=== PATIENT | male | born 2005 | race Caucasian/White ===

== ENCOUNTER 2024-09-21 15:57 | Emergency (ER) | payer BC, SELFPAY ==
[2024-09-21 15:59] VITALS: BP 140/84; PULSE 87; RESP 15; TEMP 36.4; O2SAT 100
--- NOTE | 2024-09-21 22:12 | ED_ITS ---
HPI - Extremity Injury (Lower) General Chief Complaint: Extremity Injury, Lower Stated Complaint: R thigh pain Time Seen by Provider: 09/21/24 16:29 History of Present Illness HPI Narrative: 19-year-old otherwise healthy male presents to the emergency department for evaluation of right thigh ?indentation ?he states that he has had some occasional right thigh pain when he woke up this morning and noticed that there was an incident where his major muscle groups near the quadriceps are in his right lower extremity and thigh. Denies any injury, no trauma or injuries. No strenuous activity such as lifting weights, lifting or any trauma. Denies any strenuous activity such as running or marathon. No recent infectious symptoms, was otherwise in his normal state of health. Ambulates unassisted without any ataxic or antalgic gait. Related Data Allergies Allergy/AdvReac Type Severity Reaction Status Date / Time No Known Allergies Allergy Unverified 07/15/13 08:37 Review of Systems Review of Systems: As reviewed above in HPI Exam Narrative: GENERAL: [Well-appearing, well-nourished, and in no acute distress.] HEAD: [Normocephalic, atraumatic.] EYES: [PERRLA and EOMI.] ENT: Nares clear, no rhinorrhea or epistaxis. Mucous membranes moist. NECK: Supple. CHEST: [Clear to auscultation. No respiratory distress.] HEART: [Regular rate and rhythm]. No murmur heard. [Normal peripheral pulses.] ABDOMEN: [Soft, nondistended], [nontender], [No rigidity or guarding] EXTREMITIES: Some asymmetry to the proximal thigh muscle groups of compared bilaterally. The right-sided does have a small indentation near the vastus medialis compared to the left lower extremity. No overlying skin changes or deformity, no tenderness with palpation, full range of motion of both arms and legs, ambulating without assistance, no ataxia antalgic gait. Able to flex and extend at the hip and flex extend at the knee without difficulty. Able to extend the hip and flex the quadriceps muscles equally bilaterally. SKIN: Warm, dry, no rash. NEURO: [No focal deficits]. Alert and oriented [x3.] PSYCH: [Normal mood and affect.] Course Vital Signs Vital signs: Vital Signs Temperature 36.4 C 09/21/24 15:59 Pulse Rate 87 09/21/24 15:59 Respiratory Rate 15 09/21/24 15:59 Blood Pressure 140/84 09/21/24 15:59 Pulse Oximetry 100 09/21/24 15:59 Oxygen Delivery Room Air 09/21/24 15:59 Temperature 36.4 C 09/21/24 15:59 Pulse Rate 87 09/21/24 15:59 Respiratory Rate 15 09/21/24 15:59 Blood Pressure 140/84 09/21/24 15:59 Pulse Oximetry 100 09/21/24 15:59 Oxygen Delivery Room Air 09/21/24 15:59 MDM - Extremity Injury (Lower) MDM Narrative Medical decision making narrative: 19-year-old otherwise healthy male presents for evaluation of a ?indentation ?in his right thigh, near his vastus medialis was right lower extremity quadriceps he does have a small divot but no overlying skin changes or tenderness with palpation. Normal gait, normal strength and sensation throughout both legs, full range of motion of the extremities including hip and knee extension flexion, plantar and dorsiflexion. No recent injuries or trauma, no direct overlying skin changes or other concerns. Could be a muscle strain verses a intramuscular hematoma versus less likely quadriceps tear given the lack of inciting event or trauma. Bedside ultrasound was used to investigate the muscle fibers and assess for any inflammatory changes. No identifiable tear or large hematoma/abscess formation, there does seem to be some potential inflammation or contusion in his quadriceps region there although very nonspecific and not too dissimilar from his left- sided quadriceps. Overall very benign-appearing ultrasound per my interpretation. Given that he is not having any pain or symptoms right now I believe he can safely discharged and follow up with his regular doctor for referrals to potential Sports Medicine or Orthopedics but will trial NSAID t herapy and have him return with any new or worsening concerns. Medical Records Attestation: I reviewed the patient's medical records. Discharge Plan Discharge Clinical Impression: Thigh pain, Thigh contusion Patient Disposition: Home, Self-Care Condition: Stable Instructions: Antibiotic Form Additional Instructions: We did ultrasound your leg today and there appears to be a small area of contusion and some inflammation there which could be a sign of an injury or trauma. We will send you home with some medications for anti-inflammatory measures and have a follow-up with regular doctor on outpatient basis. Return with any new or worsening concerns such as inability to tolerate weight-bearing or any difficulties with ambulation or movement. Patient Language: Hungarian Prescriptions: New naproxen 500 mg tablet 500 mg PO BID PRN (Reason: pain) Qty: 20 0RF Follow-up/Referrals: PHYSICIAN,MANAGER COUNTRY [Primary Care Provider] - Time of Disposition: 17:47
== END 2024-09-21 17:51 | disposition home or self-care (01) ==
PROVIDERS: Emergency Provider Student in an Organized Health Care Education/Training Program
DX: S70.11XA Contusion of right thigh, initial encounter (principal); X58.XXXA Exposure to other specified factors, initial encounter
CPT/HCPCS: 99282

== ENCOUNTER 2024-11-07 21:06 | Emergency (ER) | payer BC, SELFPAY ==
--- NOTE | ~2024-11-07 | XR_ITS ---
EXAMINATION: XR femur RT min 2V DATE: 11/08/2024 01:46 INDICATION: Lump in anterior right thigh. TECHNIQUE: 2 views of right femur on 4 radiographs were obtained. COMPARISON: None. FINDINGS: Alignment is normal. No fracture. Joint spaces are normal. IMPRESSION: 1. No fracture. Reviewed, dictated and finalized at location A. MOTIVE FUEL SYSTEMS CONVERTER IMPRESSION: 1. No fracture.
--- OUTSIDE RECORDS SUMMARY | 2024-11-07 21:09 | XMS_ITS | Referral Summary ---
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 SOLUTION ARCHITECT Gender Identity Not on file Sexual Orientation Not on file Last Filed Vital Signs Vital Sign Reading Time Taken Comments Blood Pressure 110/72 11/17/2023 7:37 PM INTEGRATION SOLUTION ARCHITECT Pulse 95 11/17/2023 7:37 PM INTEGRATION SOLUTION ARCHITECT Temperature 37.1 C (98.7 F) 11/17/2023 7:37 PM INTEGRATION SOLUTION ARCHITECT Respiratory Rate 20 11/17/2023 7:37 PM INTEGRATION SOLUTION ARCHITECT Oxygen Saturation 99% 11/17/2023 7:37 PM INTEGRATION SOLUTION ARCHITECT Inhaled Oxygen Concentration - - Weight 65.3 kg (144 lb) 11/17/2023 7:37 PM INTEGRATION SOLUTION ARCHITECT Height 182.9 cm (6') 05/08/2023 6:25 PM CDT Body Mass Index 19.53 05/08/2023 6:25 PM CDT Plan of Treatment Not on file Insurance [place] [employer] [place] Care Teams Field Pipelines Supervisor Relationship Specialty Start Date End Date Crystal Cardozo NP [address] [place], [place] [id number] PCP - General Pediatric Emergency Medicine 11/17/23
--- OUTSIDE RECORDS SUMMARY | 2024-11-07 21:09 | XMS_ITS | Clinical Summary ---
Author Organization [facility] Address [address] [place] [address] Care Team Providers Care Geospatial Specialist Name Role Phone Crystal Cardozo NP Primary Care Provider [phone] Allergies No known active allergies Medications No known medications Social History Tobacco Use Types Packs/Day Years Used Date Smoking Tobacco: Never Assessed Sex and Gender Information Value Date Recorded Sex Assigned at Not on file Legal Sex Male 9:51 PM CDT Gender Identity Not on file Sexual Orientation Not on file Last Filed Vital Signs Vital Sign Reading Time Taken Comments Blood Pressure 150/77 08/02/2023 9:58 PM CDT Pulse 75 08/02/2023 9:58 PM CDT Temperature 36.7 C (98.1 F) 08/02/2023 9:58 PM CDT Respiratory Rate 16 08/02/2023 9:58 PM CDT Oxygen Saturation 99% 08/02/2023 9:58 PM CDT Inhaled Oxygen Concentration - - Weight 74.8 kg (165 lb) 08/02/2023 9:58 PM CDT Height 182.9 cm (6') 08/02/2023 9:58 PM CDT Body Mass Index 22.38 08/02/2023 9:58 PM CDT Plan of Treatment Health Maintenance Due Date Last Done Comments Annual Physical 2007 HPV Vaccines (1 - Male 3-dose series) 2019 Meningococcal B Vaccine (1 of 2 - Standard) 2020 Hepatitis C 2022 COVID-19 Vaccine ( season) 2024 Influenza Adult (#1) 2024 DTaP, Tdap and Td Vaccines (7 - Td or Tdap) 04/13/2025 04/13/2015, 03/16/2009, 10/21/2005, Additional history exists Hepatitis B Vaccines Completed 05/04/2005, 2004, 2004 Pneumococcal Vaccine: Pediatrics (0 to 5 Years) and At-Risk Patients (6 to 64 Years) Completed 05/04/2005, 2004, 2004, Additional history exists Meningococcal Vaccine Aged Out 04/23/2015 No ruben ca eligible based on patient's age to complete this topic RSV Immunizations Under 20 Months Aged Out No longer eligible based on patient's age to complete this topic Insurance [facility] Care Teams Geospatial Specialist Relationship Specialty Start Date End Date Crystal Cardozo NP [address] [place] [address] PCP - General NURSE PRACTITIONER PEDIATRICS 08/02/23
--- OUTSIDE RECORDS SUMMARY | 2024-11-07 21:09 | XMS_ITS | Clinical Summary ---
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 Gender Identity Not on file Sexual Orientation Not on file Obstetrics History Last Filed Vital Signs Vital Sign Reading Time Taken Comments Blood Pressure 110/72 11/17/2023 7:37 PM PELLET MACHINE OPERATOR Pulse 95 11/17/2023 7:37 PM PELLET MACHINE OPERATOR Temperature 37.1 C (98.7 F) 11/17/2023 7:37 PM PELLET MACHINE OPERATOR Respiratory Rate 20 11/17/2023 7:37 PM PELLET MACHINE OPERATOR Oxygen Saturation 99% 11/17/2023 7:37 PM PELLET MACHINE OPERATOR Inhaled Oxygen Concentration - - Weight 65.3 kg (144 lb) 11/17/2023 7:37 PM PELLET MACHINE OPERATOR Height 182.9 cm (6') 05/08/2023 6:25 PM CDT Body Mass Index 19.53 05/08/2023 6:25 PM CDT Plan of Treatment Health Maintenance Due Date Last Done Comments Depression Screening 2004 Hepatitis C Screening 2004 HPV Vaccines (1 - Male 3-dose series) 2019 Meningococcal B Vaccine (1 of 2 - Patient Seeks Protection) 2020 Regular Well Visit/Exam 18-64 2022 Influenza Vaccine (#1) 2024 DTaP/Tdap/Td Vaccine (7 - Td or Tdap) 04/13/2025 04/13/2015, 03/16/2009, 10/21/2005, Additional history exists Pneumococcal vaccine <65 Completed 005, 2004, 2004, Additional history exists Varicella Vaccines Completed 03/16/2009, 10/21/2005 Meningococcal Vaccine Aged Out 04/23/2015 No ruben ca eligible based on patient's age to complete this topic Insurance [employer] [place] [place] Care Teams Processing Archivist Relationship Specialty Start Date End Date Crystal Cardozo NP [address] [place] [address] PCP - General Pediatric Emergency Medicine 11/17/23
[2024-11-07 21:16] VITALS: BP 127/78; PULSE 69; RESP 18; TEMP 36.3; O2SAT 100
--- OUTSIDE RECORDS SUMMARY | 2024-11-08 00:09 | XMS_ITS | Clinical Summary ---
Author Organization [facility] [address] Address [address] [place] [id number] Care Team Providers Care Core Rescuer Name Role Phone Crystal Cardozo NAIL STICKER Primary Care Provider [phone] Allergies No known active allergies Medications No known medications Active Problems No known active problems Social History Tobacco Use Types Packs/Day Years Used Date Smoking Tobacco: Never Assessed Sex and Gender Information Value Date Recorded Sex Assigned at Not on file Legal Sex Male 2:03 AM JERSEY KNITTER Gender Identity Not on file Sexual Orientation Not on file Obstetrics History Last Filed Vital Signs Vital Sign Reading Time Taken Comments Blood Pressure 110/72 11/17/2023 7:37 PM JERSEY KNITTER Pulse 95 11/17/2023 7:37 PM JERSEY KNITTER Temperature 37.1 C (98.7 F) 11/17/2023 7:37 PM JERSEY KNITTER Respiratory Rate 20 11/17/2023 7:37 PM JERSEY KNITTER Oxygen Saturation 99% 11/17/2023 7:37 PM JERSEY KNITTER Inhaled Oxygen Concentration - - Weight 65.3 kg (144 lb) 11/17/2023 7:37 PM JERSEY KNITTER Height 182.9 cm (6') 05/08/2023 6:25 PM [...] patient's age to complete this topic Insurance [employer] [place] [employer] [place] Care Teams Core Rescuer Relationship Specialty Start Date End Date Crystal Cardozo NP [address] [place] [address] PCP - General Pediatric Emergency Medicine 11/17/23
--- OUTSIDE RECORDS SUMMARY | 2024-11-08 00:09 | XMS_ITS | Referral Summary ---
Author Organization [facility] [address] Address [address] [place] [address] Care Team Providers Care Engine Emission Technician Name Role Phone Crystal Cardozo MONITORING SPECIALIST Primary Care Provider [phone] Allergies No known active allergies Medications No known medications Active Problems No known active problems Social History Tobacco Use Types Packs/Day Years Used Date Smoking Tobacco: Never Assessed Sex and Gender Information Value Date Recorded Sex Assigned at Not on file Legal Sex Male 2:03 AM FLIGHT HOSTESS Gender Identity Not on file Sexual Orientation Not on file Last Filed Vital Signs Vital Sign Reading Time Taken Comments Blood Pressure 110/72 11/17/2023 7:37 PM FLIGHT HOSTESS Pulse 95 11/17/2023 7:37 PM FLIGHT HOSTESS Temperature 37.1 C (98.7 F) 11/17/2023 7:37 PM FLIGHT HOSTESS Respiratory Rate 20 11/17/2023 7:37 PM FLIGHT HOSTESS Oxygen Saturation 99% 11/17/2023 7:37 PM FLIGHT HOSTESS Inhaled Oxygen Concentration - - Weight 65.3 kg (144 lb) 11/17/2023 7:37 PM FLIGHT HOSTESS Height 182.9 cm (6') 05/08/2023 6:25 PM CDT Body Mass Index 19.53 05/08/2023 6:25 PM CDT Plan of Treatment Not on file Insurance [employer] [place] Care Teams Engine Emission Technician Relationship Specialty Start Date End Date Crystal Cardozo NP [address] [place], [place] [id number] PCP - General Pediatric Emergency Medicine 11/17/23
--- OUTSIDE RECORDS SUMMARY | 2024-11-08 00:09 | XMS_ITS | Clinical Summary ---
Author Organization [facility] Address [address] [place] [id number] Care Team Providers Care Blue Line Trimmer Name Role Phone Crystal Cardozo NP Primary Care Provider [phone] Allergies No known active allergies Medications No [...] patient's age to complete this topic Insurance [facility] Care Teams Blue Line Trimmer Relationship Specialty Start Date End Date Crystal Cardozo NP [address] [place] [address] PCP - General NURSE PRACTITIONER PEDIATRICS 08/02/23
[2024-11-08 00:58] VITALS: BP 126/78; PULSE 66; RESP 17; O2SAT 99
--- NOTE | 2024-11-08 01:05 | ED.GENADULT ---
HPI - General Adult General Chief complaint: Extremity Injury, Lower Stated complaint: fluid in muscle of leg Time Seen by Provider: 11/08/24 00:02 History of Present Illness HPI narrative: This is a 19-year-old male presenting ED with a lump in his thigh. Patient plays basketball multiple times per week. He noticed after he plays he has pain in his right thigh. He does not know any initial injury. When he flexes his thigh it does not look the same as the other side. He was seen for in our ED for this 3 months ago but never followed up with his primary care physician. Patient denies any other symptoms such as fevers chills nausea vomiting diarrhea. No overlying skin changes. Related Data Allergies Allergy/AdvReac Type Severity Reaction Status Date / Time No Known Allergies Allergy Unverified 07/15/13 08:37 Exam Narrative: APPEARANCE: No apparent distress. Head: atraumatic. EYES: EOMI, NOSE: Atraumatic NECK: Trachea midline RESPIRATORY: No increased rate of breathing CARDIOVASCULAR: RRR, ABDOMINAL: Non-distended MUSCULOSKELETAl: Exam of the right thigh shows 2 separate muscle masses when he flexes the right quad. No overlying skin changes. No fluctuant masses. Leg is neurovascularly intact. NEURO: Alert. Moving 4/4 extremities SKIN:: Warm, dry. Normal color PSYCHIATRIC: Normal affect Course Vital Signs Vital signs: Vital Signs Temperature 97.4 F L 11/07/24 21:16 Pulse Rate 69 11/07/24 21:16 Respiratory Rate 18 11/07/24 21:16 Blood Pressure 127/78 11/07/24 21:16 Pulse Oximetry 100 11/07/24 21:16 Oxygen Delivery Room Air 11/07/24 21:16 Temperature 97.4 F L 11/07/24 21:16 Pulse Rate 66 11/08/24 00:58 Respiratory Rate 17 11/08/24 00:58 Blood Pressure 126/78 11/08/24 00:58 Pulse Oximetry 99 11/08/24 00:58 Oxygen Delivery Room Air 11/07/24 21:16 Medical Decision Making [facility] Narrative Medical decision making narrative: -Course: 19-year-old male presenting with thigh pain after playing sports. X-ray of the thigh is negative. Discussed importance of following up with a primary care physician and a sports medicine physician. Discussed resting his thigh as sports appear to be exacerbating his injury. Patient will be discharged Vital Signs Vital Signs: Vital Signs Temperature 97.4 F L 11/07/24 21:16 Pulse Rate 69 11/07/24 21:16 Respiratory Rate 18 11/07/24 21:16 Blood Pressure 127/78 11/07/24 21:16 Pulse Oximetry 100 11/07/24 21:16 Oxygen Delivery Room Air 11/07/24 21:16 Temperature 97.4 F L 11/07/24 21:16 Pulse Rate 66 11/08/24 00:58 Respiratory Rate 17 11/08/24 00:58 Blood Pressure 126/78 11/08/24 00:58 Pulse Oximetry 99 11/08/24 00:58 Oxygen Delivery Room Air 11/07/24 21:16 Discharge Plan Discharge Clinical Impression: Muscle strain of right thigh Patient Disposition: Home, Self-Care Condition: Stable Instructions: Antibiotic Form, Muscle Strain (ED) Additional Instructions: Please use [id number] Motrin/Tylenol as needed for pain. Please rest your thigh as sports appear to be worsening or injury. Please follow-up with your primary care physician and they can refer you to a sports medicine doctor return if you develop severe pain or weakness your leg. Patient Language: Saudi Arabian Prescriptions: No Action naproxen 500 mg tablet 500 mg PO BID PRN (Reason: pain) Qty: 20 0RF Follow-up/Referrals: PHYSICIAN,INTERN ARCHITECT [Primary Care Provider] -
[2024-11-08 01:32] VITALS: BP 126/78; PULSE 66; RESP 17; O2SAT 99
== END 2024-11-08 01:34 | disposition home or self-care (01) ==
PROVIDERS: Emergency Provider Emergency Medicine
DX: S76.911A Strain of unspecified muscles, fascia and tendons at thigh level, right thigh, initial encounter (principal); X58.XXXA Exposure to other specified factors, initial encounter; Y93.67 Activity, basketball
CPT/HCPCS: 73552; 99283

== ENCOUNTER 2025-04-15 23:44 | Emergency (ER) | payer BC, SELFPAY ==
--- OUTSIDE RECORDS SUMMARY | 2025-04-15 23:46 | XMS_ITS | Clinical Summary ---
Author Organization [facility] Address [facility] [place] [address] Care Team Providers Care Wholesale Representative Name Role Phone Crystal Cardozo NP Primary Care Provider [phone] Allergies No known active allergies Medications No [...] C 2022 COVID-19 Vaccine ( season) 2024 DTaP, Tdap and Td Vaccines (7 - Td or Tdap) 04/13/2025 04/13/2015, 03/16/2009, 10/21/2005, Additional history exists Hepatitis B Vaccines Completed 05/04/2005, 2004, 2004 Pneumococcal Vaccine: Pediatrics (0 to 5 Years) and At-Risk Patients (6 to 49 Years) Completed 05/04/2005, 2004, 2004, Additional history exists Meningococcal Vaccine Aged Out 04/23/2015 No ruben ca eligible based on patient's age to complete this topic RSV Immunizations Under 20 Months Aged Out No longer eligible based on patient's age to complete this topic Insurance [facility] Care Teams Wholesale Representative Relationship Specialty Start Date End Date Crystal Cardozo NP [address] [place] [address] PCP - General NURSE PRACTITIONER PEDIATRICS 08/02/23
--- OUTSIDE RECORDS SUMMARY | 2025-04-15 23:46 | XMS_ITS | Referral Summary ---
Author Organization [address] [address] Care Team Providers Care Manager Relationship Name Role Phone Crystal Cardozo CONTINUITY TESTER Primary Care Provider [phone] Encounters Date Type Department Care Team Description 04/15/2025 3:45 PM CDT Office Visit [facility] at [address] [address] Natalie Thorpe NP Bilateral impacted cerumen (Primary Dx) from Last 3 Months Allergies No known active allergies Medications clobetasoL (TEMOVATE) 0.05 % gel Apply 0.05 Applications topically 2 (two) times a day 5 Active clindamycin-dena zoyl peroxide (BENZACLIN) gel APPLY EXTERNALLY TO ACNE PRONE AREAS ONCE DAILY EVERY MORNING. ALLOW TO DRY FULLY. CAN BLEACH CLOTHING 5 Active tretinoin (RETIN-A) 0.025 % cream APPLY TOPICALLY TO ACNE PRONE AREAS EVERY NIGHT 5 Active Active Problems No known active problems Social History Tobacco Use Types Packs/Day Years Used Date Smoking Tobacco: Never Smokeless Tobacco: Never Tobacco Cessation:Counseling Given: Not Answered AUDIT-C Answer Date Recorded Q1: How often do you have a drink containing alcohol? Never 12/16/2024 Q2: How many drinks containi ng alcohol do you have on a typical day when you are drinking? Patient does not drink Q3: How often do you have si x or more drinks on one occasion? 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 Gender Identity Not on file Sexual Orientation Not on file Last Filed Vital Signs Vital Sign Reading Time Taken Comments Blood Pressure 100/60 04/15/2025 3:39 PM CDT Pulse 77 04/15/2025 3:39 PM CDT Temperature 37 C (98.6 F) 04/15/2025 3:39 PM CDT Respiratory Rate 18 04/15/2025 3:39 PM CDT Oxygen Saturation 97% 04/15/2025 3:39 PM CDT Inhaled Oxygen Concentration - - Weight 77.1 kg (170 lb) 04/15/2025 3:39 PM CDT Height 182.9 cm (6') 04/15/2025 3:39 PM CDT Body Mass Index 23.06 04/15/2025 3:39 PM CDT Plan of Treatment Not on file Procedures Procedure Name Priority Date/Time Associated Diagnosis Comments OR REMOVAL IMPACTED CERUMEN INSTRUMENTATION UNILAT Routine 04/15/2025 3:45 PM CDT Bilateral impacted cerumen from Last 3 Months Results * OR REMOVAL IMPACTED CERUMEN INSTRUMENTATION UNILAT (04/15/2025 3:45 PM CDT) Narrative Natalie Thorpe NP - 04/15/2025 3:45 PM CDT Natalie Thorpe NP 04/15/2025 4:03 PM Ear Cerumen Removal Performed by: Natalie Thorpe NP Authorized by: Natalie Thorpe NP Consent Given by: Patient Verbal consent obtained: Yes Location: Bilateral L ear cerumen impacted?: Yes L ear method of removal: Instrumentation L ear instrumentation: Curette L ear magnification: Otoscope R ear cerumen impacted?: Yes R ear method of removal: Instrumentation and irrigation R ear instrumentation: Curette R ear magnification: Otoscope Inspection: TM intact Hearing quality: Improved Patient tolerance: Patient tolerated the procedure well with no immediate complications Bilateral ear canals and Tms normal after cerumen removal us Natalie Thorpe NP IN CLINIC/BEDSIDE ORDERABLES F inal Result from Last 3 Months Insurance [place] [employer] [place] Care Teams Manager Relationship Relationship Specialty Start Date End Date Crystal Cardozo NP [address] [place] [address] PCP - General Pediatric Emergency Medicine 11/17/23
--- OUTSIDE RECORDS SUMMARY | 2025-04-15 23:46 | XMS_ITS | Clinical Summary ---
Author Organization [facility] [place] [address] Address [address] [place] [id number] Care Team Providers Care Epic Trainer Name Role Phone Crystal Cardozo COMMISSIONED FIRE OFFICER Primary Care Provider [phone] [phone] Allergies No known active allergies Medications clobetasoL [...] Active Active Problems No known active problems Encounters Date Type Department Care Team Description 04/15/2025 3:45 PM CDT Office Visit [facility] Medical Group [facility] Care at [address] [address] Natalie Thorpe NP Bilateral impacted cerumen (Primary Dx) from Last 3 Months Family History Medical History Relation Name Comments No Known Problems Brother 1 No Known Problems Brother 2 No Known Problems Brother 3 No Known Problems Father No Known Problems Mother No Known Problems Sister 1 No Known Problems Sister 2 No Known Problems Sister 3 Relation Name Status Comments Brother 1 Alive Brother 2 Alive Brother 3 Alive Father Alive Mother Alive Sister 1 Alive Sister 2 Alive Sister 3 Alive Social History Tobacco Use Types Packs/Day Years [...] on file 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 Gender Identity Not on file Sexual Orientation [...] 04/15/2025 3:39 PM CDT Plan of Treatment Health Maintenance Due Date Last Done Comments Depression Screening 2004 Hepatitis C Screening 2004 HPV Vaccines (1 - Male 3-dose series) 2019 Meningococcal B Vaccine (1 of 2 - Standard) 2020 Regular Well Visit/Exam 18-64 2022 DTaP/Tdap/Td Vaccine (7 - Td or Tdap) 04/13/2025 04/13/2015, 03/16/2009, 10/21/2005, Additional history exists Influenza Vaccine (#1) 2025 Hepatitis B Screening Completed 05/04/2005 , 2004, 2004 Pneumococcal vaccine <65 Completed 005, 2004, 2004, Additional history exists Varicella Vaccines Completed 03/16/2009, 10/21/2005 Meningococcal Vaccine Aged Out 04/23/2015 No ruben ca eligible based on patient's age to complete this topic Procedures Procedure Name Priority Date/Time Associated Diagnosis Comments [place] REMOVAL IMPACTED CERUMEN INSTRUMENTATION UNILAT Routine 04/15/2025 3:45 PM CDT Bilateral impacted cerumen from Last 3 Months Results * [place] REMOVAL IMPACTED CERUMEN INSTRUMENTATION UNILAT (04/15/2025 3:45 [...] canals and Tms normal after cerumen removal Natalie Thorpe NP IN CLINIC/BEDSIDE ORDERABLES F inal Result from Last 3 Months Insurance [employer] [facility] Care Teams Epic Trainer Relationship Specialty Start Date End Date Crystal Cardozo NP [address] [place] [address] PCP - General Pediatric Emergency Medicine 11/17/23
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
[2025-04-15] MEDS: ACETAMINOPHEN 500 MG TABLET 1000 MG PO (23:52)
[2025-04-15 23:56] VITALS: BP 146/96; PULSE 104; RESP 18; TEMP 39; O2SAT 98
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
--- OUTSIDE RECORDS SUMMARY | 2025-04-16 01:31 | XMS_ITS | Clinical Summary ---
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 Gender Identity Not on file Sexual Orientation [...] Procedure Name Priority Date/Time Associated Diagnosis Comments [place] REMOVAL IMPACTED CERUMEN INSTRUMENTATION UNILAT Routine 04/15/2025 3:45 PM CDT Bilateral impacted cerumen from Last 3 Months Results * [place] REMOVAL IMPACTED CERUMEN INSTRUMENTATION UNILAT (04/15/2025 3:45 [...] inal Result from Last 3 Months Insurance [facility] [employer] [facility] Care Teams Account Support Associate Relationship Specialty Start Date End Date Crystal Cardozo NP [address] [place] [address] PCP - General Pediatric Emergency Medicine 11/17/23
--- OUTSIDE RECORDS SUMMARY | 2025-04-16 01:31 | XMS_ITS | Referral Summary ---
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
--- OUTSIDE RECORDS SUMMARY | 2025-04-16 01:31 | XMS_ITS | Clinical Summary ---
Author Organization [facility] Address [id number] [place] [address] Care Team Providers Care Order Department Supervisor Name Role Phone Crystal Cardozo NP Primary Care Provider [phone] Allergies No known active allergies Medications No [...] patient's age to complete this topic Insurance [facility] Care Teams Order Department Supervisor Relationship Specialty Start Date End Date Crystal Cardozo NP [address] [place] [address] PCP - General NURSE PRACTITIONER PEDIATRICS 08/02/23
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
[2025-04-16] MEDS: LACTATED RINGERS 1,000 ML 999 ML IV CONT (02:10)
[2025-04-16 02:11] LABS: Add Urine Microscopic? NO; Appearance Urine Clear (Clear); Glucose Urine UA Negative (Negative); Leukocyte Esterase Ur Negative LEU/UL (Negative); Nitrate Urine Negative (Negative); Specific Grav Ur 1.017 (1.001-1.035)
[2025-04-16 02:14] LABS: Hematocrit 42.2 % (42.0-52.0); Hemoglobin 14.4 g/dL (14.0-18.0); Immature Granulocyte Percent A 0.3 % (0-0.5); Lymphocytes Absolute Auto 0.81 K/mm3 (0.9-3.2); Mean Corpuscular HGB Conc 34.1 g/dl (32-36); Mean Corpuscular Hemoglobin 29.6 pg (26-34); Mean Corpuscular Volume 86.8 fl (80-100); Nucleated Red Blood Cells Absolute Auto 0.000 K/mm3 (0.0-0.012); Nucleated Red Blood Cells Perc 0.0 % (0.0-0.2); Platelet Count Result 190 k/mm3 (150-375); Red Blood Count 4.86 M/mm3 (4.6-6.20); White Blood Count 5.8 K/mm3 (4.5-10.0)
[2025-04-16 02:26] VITALS: BP 117/81; PULSE 78; RESP 12; O2SAT 97
[2025-04-16 02:31] LABS: Alanine Aminotransferase 25 U/L (6-50); Albumin Level 4.0 g/dL (3.5-5.1); Alkaline Phosphatase 59 U/L (38-126); Anion Gap 9 mmol/L (4-12); Aspartate Amino Transferase 56 U/L (17-59); Bilirubin,Total 0.9 mg/dL (0.2-1.3); Blood Urea Nitrogen 13 mg/dL (9-20); Calcium 8.6 mg/dL (8.4-10.2); Carbon Dioxide 24 mmol/L (22-30); Chloride 105 mmol/L (98-107); Estimated Glomerular Filt Rate > 60; Glucose 114 mg/dL (65-110); Magnesium 1.8 mg/dL (1.6-2.3); Potassium 3.8 mmol/L (3.4-5.0); Sodium 138 mmol/L (137-145); Total Protein 7.3 g/dL (6.3-8.2)
[2025-04-16 04:13] VITALS: TEMP 37.6
[2025-04-16] MEDS: IBUPROFEN IV 800 MG/200 ML 800 MG/200 ML BAG 400 MG IVPB (04:13)
[2025-04-16 05:00] VITALS: BP 112/76; PULSE 71; RESP 15; O2SAT 99
[2025-04-16] MEDS: CIPROFLOXACIN 500 MG TAB PO (05:15)
[2025-04-16 05:19] VITALS: BP 121/77; PULSE 61; RESP 16; TEMP 37.2; O2SAT 99
== END 2025-04-16 05:51 | disposition home or self-care (01) ==
PROVIDERS: Emergency Provider Student in an Organized Health Care Education/Training Program
DX: K52.9 Noninfective gastroenteritis and colitis, unspecified (principal); R50.9 Fever, unspecified
CPT/HCPCS: 36415; 80053; 81003; 83735; 85025; 96365; 99284; A9270; J1741; J7120